=== PATIENT | female | born 1975 | race Caucasian/White ===

== ENCOUNTER 2018-10-24 22:33 | Emergency (ER) | payer SELFPAY ==
[2018-10-24] MEDS ORDERED: Lorazepam 1 MG TAB ONE (22:42)
[2018-10-24] MEDS ORDERED: Lidocaine 1% w/Epinephrine 1:100K 20 ML VIAL ONE (22:46)
--- NOTE | 2018-10-24 23:18 | RAD ---
RIGHT FOREARM TWO VIEWS: 10/24/18 HISTORY: Trauma. Right forearm pain. Laceration. FINDINGS/IMPRESSION: The right radius and ulna are intact. No radiopaque foreign body is seen. POS: [facility]
--- NOTE | 2018-10-24 23:19 | RAD ---
LEFT HAND THREE VIEWS: 10/24/18 HISTORY: Trauma, left hand pain. FINDINGS/IMPRESSION: No acute fracture or dislocation is identified. No radiopaque foreign body is seen. POS: [facility]
[2018-10-24] MEDS ORDERED: Adacel (T-DAP) 0.5 ML SYRINGE ONE (23:20)
[2018-10-24] MEDS ORDERED: Amoxicillin/Potassium Clav 875 MG TAB ONE (23:20)
[2018-10-24] MEDS ORDERED: Lidocaine 1% (PF) 30 ML VIAL ONE (23:22)
== END 2018-10-25 00:19 | disposition home or self-care (01) ==
LOC: ERS 22:33
DX: S51.811A Laceration without foreign body of right forearm, initial encounter (principal); S61.211A Laceration without foreign body of left index finger without damage to nail, initial encounter; F17.210 Nicotine dependence, cigarettes, uncomplicated; Z23 Encounter for immunization; W18.09XA Striking against other object with subsequent fall, initial encounter
CPT/HCPCS: 12001; 12034; 90471; 90715; J2001

== ENCOUNTER 2019-02-13 01:41 | Emergency (ER) | payer SELFPAY ==
[2019-02-13 02:19] LABS: Hemoglobin 15.1 g/dL (12.0-16.0); Mean Corpuscular HGB CONC 33.8 g/dL (32.0-36.0); Mean Corpuscular Hemoglobin 35.9 pg (27.0-31.0); RBC Distribution Width 13.7 % (11.5-14.5); Red Blood Cell (RBC) Count 4.21 mill/uL (4.20-5.40)
[2019-02-13 02:21] LABS: Acetaminophen Less than 6.0 mcg/mL (10.0-30.0); Salicylate Less than 8.0 mg/dL (15.0-30.0)
[2019-02-13 02:22] LABS: ALT (SGPT) 29 U/L (8-55); AST (SGOT) 122 U/L (5-34); Albumin 5.1 g/dL (3.5-5.0); Alkaline Phosphatase 120 U/L (40-110); Anion Gap 18 mmol/L (10-20); BUN (Urea Nitrogen) 7 mg/dL (7.0-18.7); Bilirubin, Total 0.6 mg/dL (0.2-1.2); Calc. Creatinine Clearance 0 mL/min (70-130); Calcium 9.1 mg/dL (7.8-10.44); Carbon Dioxide 29 mmol/L (22-29); Chloride 104 mmol/L (98-107); Estimated GFR-MDRD Greater than 90; Glucose 83 mg/dL (70-105); Potassium 3.6 mmol/L (3.5-5.1); Protein, Total 8.1 g/dL (6.0-8.3); Sodium 147 mmol/L (136-145)
[2019-02-13 02:26] LABS: Alcohol 470 mg/dL (Less than 10)
[2019-02-13 02:54] LABS: #Eosinphils 0.1 thou/uL (0.0-0.7); #Lymphocytes 2.1 thou/uL (1.20-3.40); #Monocytes 0.4 thou/uL (0.11-0.59); %Basophils 0.7 % (0.0-1.0); %Lymphocytes 45.7 % (21.0-51.0); %Monocytes 7.6 % (0.0-10.0); MDiff Complete? YES; Macrocytosis SLIGHT = 6-15 cells (100X) (0-5/hpf); Mean Platelet Volume 7.9 fL (7.4-10.4); Platelet Count 90 thou/uL (130-400); Platelet Morphology Comment Appears Decreased; White Blood Cell (WBC) Count 4.6 thou/uL (4.8-10.8)
[2019-02-13 03:10] LABS: Bilirubin Negative (Negative); Blood, Urine Trace (Negative); Clarity Clear (Clear); Glucose, Urine (Dipstick) Normal (Negative); Leukocyte Negative Leu/uL (Negative); Nitrite Negative (Negative); Protein, Urine (Dipstick) 50 mg/dL (Neg-Trace); RBC/HPF 0-3 HPF (0-3); Squamous Epithelial 0-3 HPF (0-3); Urobilinogen Normal mg/dL (Less than 2); WBC/HPF 0-3 HPF (0-3)
[2019-02-13 03:11] LABS: Amphetamine Not Detected (NotDetected); Bacteria/HPF 1+ HPF (None Seen); Barbiturates Screen Not Detected (NotDetected); Benzodiazepine Screen Not Detected (NotDetected); Cocaine Metabolite Screen Not Detected (NotDetected); Medtox Control Line Valid? VALID (VALID); Medtox Reader # READER 4; Methadone Not Detected (NotDetected); Methamphetamine Not Detected (NotDetected); Opiate Screen Not Detected (NotDetected); Oxycodone Screen Not Detected (NotDetected); Phencyclidine (PCP) Not Detected (NotDetected); Pregnancy Test - Urine (BHCG) Negative (Negative); Pregu Control Background? CLEAR/WHITE (CLR/WHITE); Pregu Control Bar Appear? YES (CONTROL BAR); Specific Gravity 1.006 (1.002-1.036); THC/Cannabinoid Screen Not Detected (NotDetected); Tricyclic Screen Not Detected (NotDetected)
[2019-02-13] MEDS ORDERED: Diazepam 5 MG TAB ONE (15:13)
[2019-02-13] MEDS ORDERED: Ondansetron ODT 4 MG TAB ONE ×2 (15:14→17:30)
[2019-02-13] MEDS ORDERED: Prochlorperazine Maleate 5 MG TAB ONE (19:34)
[2019-02-13] MEDS ORDERED: Prochlorperazine 10 MG/2 ML VIAL IVP SCH (20:45)
[2019-02-13] MEDS ORDERED: Acetaminophen 325 MG TAB PO PRN (23:04)
[2019-02-13] MEDS ORDERED: Ondansetron PF 4 MG/2 ML Vial IVP PRN (23:04)
[2019-02-13] MEDS ORDERED: Lorazepam 2 MG/ML VIAL SLOW IVP PRN (23:11)
[2019-02-13] MEDS ORDERED: Metoprolol Tartrate 25 MG TAB PO SCH (23:45)
--- NOTE | 2019-02-13 23:52 | HP ---
PRESENTING COMPLAINT: Suicidal ideation. HISTORY OF PRESENT ILLNESS: Ms. Fléix Oliver is a 43-year-old female, who presented to the ED yesterday because of complaint of heavy drinking in an attempt to kill herself. On presentation, she was initially drowsy noted with elevated alcohol level. The patient was kept in the ED awaiting Psych. However, today the patient started to have nausea and retching as well as reported mild tremors. At the time of evaluation of the patient, the patient's retching has improved. She is feeling hungry now, would like something to eat. She has been able to tolerate sips of water. She states that she typically gets some mild tremors after not drinking for over 12 hours, which is typical of everyday life. She states she has been drinking lots of whiskey with an attempt to . She has a history of depressive disorder, but has not been taking SSRI due to financial issues recently. PAST MEDICAL HISTORY: Significant for depression. 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 She admits to daily whiskey and beer use. She denies any tobacco or illicit drug use. FAMILY HISTORY: She denies any history of coronary artery disease. ALLERGIES: TRAMADOL. HOME MEDICATIONS: None. REVIEW OF SYSTEMS: All systems reviewed x10 were negative except as mentioned above. PHYSICAL EXAMINATION: VITAL SIGNS: Blood pressure of 153/117, pulse of 90, respiratory rate of 18, O2 saturation is 100% on room air. GENERAL: Thin built, clinically malnourished lady, not in any distress. HEENT: Pupils are equal and reactive to light. No conjunctival icterus. Head is atraumatic, normocephalic. NECK: No JVD. No carotid bruit. RESPIRATORY: Good air entry. No crepitation. CARDIOVASCULAR: S1, S2. Rate is regular. GI: Abdomen is full, soft, nontender. No hepatosplenomegaly. No epigastric tenderness. EXTREMITIES: No pedal edema. NEUROLOGIC: The patient is alert, conversant, very minimal tremors of the hands noted. LABORATORY DATA: WBC 4.6, hemoglobin 15, neutrophils 44. Sodium 147, potassium 3.6, creatinine 0.6, AST 122, ALT 29, alkaline phosphatase 120, T bilirubin of 0.6. TSH 2.2. Urinalysis unremarkable except for 1+ bacteria, but no leukocyte esterase. Serum alcohol level of 470. Urine drug screen shows negative. Repeat alcohol level down to 90 now. IMPRESSION: 1. Suicidal ideation. 2. Alcohol intoxication with impending withdrawal. PLAN: 1. We will admit the patient to observation. Psych discussed with await patient's symptoms to improve before accepting the patient. 2. We will start the patient on Ativan p.r.n. for now. 3. We will start gentle IV fluid. 4. We will also start patient on Protonix as well as Zofran p.r.n. 5. We will initiate folic acid and timing for patient. 6. Monitor blood pressure and if continues to increase, the patient might benefit from a beta yuki or clonidine. 7. We will keep the patient until ready for acceptance to psych unit. 8. We will do subcutaneous Lovenox for DVT prophylaxis. Total time spent in evaluation of patient and discussion greater than 50 minutes. The patient is a full code. Job ID: [id number]
[2019-02-13] MEDS ORDERED: Sodium Chloride 0.9% 1,000 ML IV SCH (23:59)
[2019-02-14] MEDS ORDERED: Meclizine HCl 25 MG TAB ONE ×2 (02:08→02:11)
[2019-02-14] MEDS ORDERED: Thiamine 100 MG TAB PO SCH (09:00)
[2019-02-14] MEDS ORDERED: Enoxaparin Sodium 30 MG/0.3 ML SYRINGE SC SCH (09:00)
[2019-02-14] MEDS ORDERED: Folic Acid 1 MG TAB PO SCH (09:00)
[2019-02-14] MEDS ORDERED: Metoprolol Tartrate 25 MG TAB PO SCH (09:00)
[2019-02-14] MEDS ORDERED: Famotidine 20 MG TAB PO SCH (09:00)
== END 2019-02-14 03:05 ==
LOC: ERS 01:41
DX: F10.239 Alcohol dependence with withdrawal, unspecified (principal); R45.851 Suicidal ideations; F17.210 Nicotine dependence, cigarettes, uncomplicated
CPT/HCPCS: 36415; 80053; 80306; 80307; 81003; 81015; 81025; 84443; 85025; 96374; J0780; J8597; Q0162; Q0164